=== PATIENT | female | born 1955 | race Caucasian/White ===

== ENCOUNTER 2018-07-08 06:48 | Day surgery (SDC) | payer BC ==
[2018-07-04 13:24] VITALS: BMI 56.7
[~2018-07-08 06:48] MED LIST: LACTATED RINGERS 1,000 ML IV SCH; LIDOCAINE 1% 20 ML VIAL (10MG/ML) FOR IV START INTRADERMA PRN
[2018-07-08] MEDS ORDERED: LACTATED RINGERS 1,000 ML IV ONE (06:59)
[2018-07-08 07:15] VITALS: RESP 16; TEMP 98.5
[2018-07-08] MEDS ORDERED: PROPOFOL 10 MG/ML 20 ML VIAL IV ONE (07:45)
--- NOTE | 2018-07-08 07:46 | P.GSHP ---
History of Present Illness H&P Date: 07/08/18 Chief Complaint: Screening colonoscopy 's is a 62 female who presents today for screening colonoscopy. Her last colonoscopy was over 10 years ago. She's had no GI complaints. Past Medical History Past Medical History: Cancer, GERD/Reflux, Hyperlipidemia, Hypertension, Osteoarthritis (OA), Pneumonia Additional Past Medical History / Comment(s): anemia, lymphedema gin legs, melanoma, "pre uterine cancer" History of Any Multi-Drug Resistant Organisms: None Reported Past Surgical History: Bariatric Surgery, Cholecystectomy, Hysterectomy, Tonsillectomy Additional Past Surgical History / Comment(s): melanoma removed from back, gastric bypass, Past Anesthesia/Blood Transfusion Reactions: Motion Sickness Additional Past Anesthesia/Blood Transfusion Reaction / Comment(s): past hx car sickness-not current, Smoking Status: Never smoker - Past Family History Mother Family Medical History: No Reported History Medications and Allergies Home Medications Medication Instructions Recorded Confirmed Type Aspirin [Adult Low Dose Aspirin EC] 81 mg PO DAILY 07/04/18 07/04/18 History Cyanocobalamin (Vitamin B-12) 1,000 mcg PO QAM 07/04/18 07/08/18 History [Vitamin B-12] Losartan Potassium [Cozaar] 50 mg PO HS 07/04/18 07/08/18 History Metoprolol Succinate [Toprol XL] 50 mg PO HS 07/04/18 07/08/18 History Multivitamins, Thera [Multivitamin 1 tab PO DAILY 07/04/18 07/04/18 History (formulary)] Simvastatin [Zocor] 40 mg PO HS 07/04/18 07/08/18 History Allergies Allergy/AdvReac Type Severity Reaction Status Date / Time No Known Allergies Allergy Verified 07/08/18 07:15 Surgical - Exam Vital Signs Temp Pulse Resp BP Pulse Ox 98.5 F 67 16 130/79 97 07/08/18 07:13 07/08/18 07:13 07/08/18 07:13 07/08/18 07:13 07/08/18 07:13 - General well developed, no distress - Eyes PERRL - ENT normal pinna - Neck no masses - Respiratory normal expansion - Cardiovascular Rhythm: regular - Abdomen Abdomen: soft, non tender Assessment and Plan Assessment: We will perform screening colonoscopy.
--- NOTE | 2018-07-08 08:02 | P.OP ---
Date of Procedure: 07/08/18 Preoperative Diagnosis: Screening colonoscopy Postoperative Diagnosis: Normal colon Procedure(s) Performed: Colonoscopy Anesthesia: MAC Surgeon: Crow Palomino Pathology: none sent Condition: stable Disposition: PACU Description of Procedure: PROCEDURE: The patient was placed on the endoscopy table in the lateral position. Digital rectal examination was performed which revealed no abnormalities. . Flexible colonoscope was then placed in the patient's anus and passed throughout the entire colon. The ileocecal valve was visualized. The cecum, ascending, transverse, descending and sigmoid colon were normal. The rectum was normal as well. There were no masses, polyps or diverticula noted in the entire colon. SUMMARY OF FINDINGS: Normal colonoscopy.
[2018-07-08 08:27] VITALS: BP 122/77; PULSE 50
== END 2018-07-08 08:43 | disposition home or self-care (01) ==
LOC: ORWHC2ENDO 06:48
PROVIDERS: ATTEND Surgery
DX: Z12.11 Encounter for screening for malignant neoplasm of colon (principal); E78.5 Hyperlipidemia, unspecified; I10 Essential (primary) hypertension; I89.0 Lymphedema, not elsewhere classified; K21.9 Gastro-esophageal reflux disease without esophagitis; M19.90 Unspecified osteoarthritis, unspecified site; Z79.82 Long term (current) use of aspirin; Z85.820 Personal history of malignant melanoma of skin; Z98.84 Bariatric surgery status; Z90.49 Acquired absence of other specified parts of digestive tract
CPT/HCPCS: J2704; G0121; 45378

== ENCOUNTER → 2019-11-17 | Outpatient (CLI) | payer OTHER ==
--- NOTE | 2019-11-18 09:02 | MM ---
Reason for exam: screening (asymptomatic). Last mammogram was performed 4 years and 1 month ago. History: Patient has history of other cancer at age 39 and is nulliparous. Physical Findings: A clinical breast exam by your physician is recommended on an annual basis and results should be correlated with mammographic findings. MG 3D Screening Mammo W/Cad Bilateral CC and MLO view(s) were taken. Prior study comparison: October 19, 2015, bilateral MG screening mammo w CAD. The breast tissue is heterogeneously dense. This may lower the sensitivity of mammography. There are benign appearing round vascular dystrophic calcifications bilaterally. There is no discrete abnormality. ASSESSMENT: Benign, BI-RAD 2 RECOMMENDATION: Routine screening mammogram of both breasts in 1 year.
== END | disposition home or self-care (01) ==
LOC: RADMAMWWP 09:12
PROVIDERS: ATTEND Family Medicine
DX: Z12.31 Encounter for screening mammogram for malignant neoplasm of breast (principal)
CPT/HCPCS: 77063; 77067

== ENCOUNTER → 2021-04-19 | Outpatient (CLI) | payer MEDICARE, OTHER ==
--- NOTE | 2021-04-19 13:51 | MM ---
Reason for exam: screening (asymptomatic). Last mammogram was performed 1 year and 5 months ago. History: Patient has history of other cancer at age 39 and is nulliparous. Physical Findings: A clinical breast exam by your physician is recommended on an annual basis and results should be correlated with mammographic findings. MG Screening Mammo w CAD Bilateral CC and MLO view(s) were taken. Prior study comparison: November 17, 2019, bilateral MG 3d screening mammo w/cad. October 19, 2015, bilateral MG screening mammo w CAD. There are scattered fibroglandular densities. ASSESSMENT: Negative, BI-RAD 1 RECOMMENDATION: Routine screening mammogram of both breasts in 1 year.
== END | disposition home or self-care (01) ==
LOC: RADMAMWWP 09:15
PROVIDERS: ATTEND Family Medicine
DX: Z12.31 Encounter for screening mammogram for malignant neoplasm of breast (principal)
CPT/HCPCS: 77067

== ENCOUNTER → 2022-10-11 | Outpatient (CLI) | payer MEDICARE ==
--- NOTE | 2022-10-11 19:23 | US ---
EXAMINATION TYPE: US kidneys/renal and bladder DATE OF EXAM: 10/11/2022 COMPARISON: NONE CLINICAL HISTORY: N18.30 CKD STAGE 3 UNSP. CKD. EXAM MEASUREMENTS: Right Kidney: 9.1 x 4.8 x 4.7 cm Left Kidney: 9.5 x 4.6 x 5.1 cm Exam is limited due to gas. Right Kidney: Hyperechoic focus seen at mid: 0.4 x 0.5 x 0.3 cm. Left Kidney: No hydronephrosis or masses seen Bladder: Appears anechoic. Bilateral Jets seen: Yes IMPRESSION: 1. No evidence of obstructive uropathy. 2. Right renal cortical probable calcification could be from prior injury.
== END | disposition home or self-care (01) ==
LOC: RADUSWWP 16:15
PROVIDERS: ATTEND Family Medicine
DX: N18.30 Chronic kidney disease, stage 3 unspecified (principal)
CPT/HCPCS: 76770

== ENCOUNTER → 2022-11-24 | Outpatient (CLI) | payer MEDICARE ==
[2022-11-24 18:47] LABS: HCT 43.1 % (37.2-46.3); HGB 13.6 g/dL (12.0-15.0); MCH 29.8 pg (27.0-32.0); MCHC 31.6 g/dL (32.0-37.0); MCV 94.5 fL (80.0-97.0); NRBC Per 100 WBC 0 /100 WBCS (0.0-0.0); Platelet Count 237 X 10*3/uL (140-440); RBC 4.56 X 10*6/uL (4.10-5.20); RDW 12.9 % (11.5-14.5); WBC 6.36 X 10*3/uL (4.50-10.00)
[2022-11-24 18:58] LABS: African American GFR (CKD) 48.5 (60.0-200.0); Albumin 4.2 g/dL (3.8-4.9); Anion Gap 10.9 mmol/L (10.00-18.00); BUN/Creat Ratio 12.31 Ratio (12.00-20.00); Calcium 9.8 mg/dL (8.7-10.3); Carbon Dioxide 26.1 mmol/L (20.0-27.5); Globulin 2.1 g/dL (1.6-3.3); Non-African American GFR(CKD) 41.8 (60.0-200.0); Phosphorus 4.4 mg/dL (2.4-5.1); Potassium 5.1 mmol/L (3.5-5.5); Total Bilirubin 0.8 mg/dL (0.30-1.20); Total Protein 6.3 g/dL (6.2-8.2)
[2022-11-24 19:58] LABS: Appearance,Urine Clear (Clear); Bilirubin,Urine Negative (Negative); Blood,Urine Negative (Negative); Color,Urine Yellow (Yellow); Ketones,Urine Negative (Negative); Nitrite,Urine Negative (Negative); PH, Urine 5.5 (5.0-8.0); Specific Gravity,Urine 1.013 (1.001-1.030)
[2022-11-24 20:07] LABS: Bacteria,Urine None Seen /HPF (None Seen)
== END | disposition home or self-care (01) ==
LOC: LABWHC1 10:04
PROVIDERS: ATTEND Family Medicine
DX: N18.30 Chronic kidney disease, stage 3 unspecified (principal)
CPT/HCPCS: 36415; 80053; 81001; 84100; 85027

== ENCOUNTER → 2023-03-23 | Outpatient (CLI) | payer MEDICARE ==
[2023-03-23 15:26] LABS: Basophils # (A) 0.04 X 10*3/uL (0.00-0.10); Basophils % (A) 0.7 %; Eosinophils # (A) 0.24 X 10*3/uL (0.04-0.35); Eosinophils % (A) 4.2 %; HCT 41.6 % (37.2-46.3); HGB 13.4 g/dL (12.0-15.0); Immature Grans, Automated 0.3 %; Lymphocytes # (A) 1.41 X 10*3/uL (0.90-5.00); Lymphocytes % (A) 24.4 %; MCH 29.8 pg (27.0-32.0); MCHC 32.2 g/dL (32.0-37.0); MCV 92.7 fL (80.0-97.0); Mean Platelet Volume 10.1 fL (9.5-12.2); Monocytes # (A) 0.47 X 10*3/uL (0.20-1.00); Monocytes % (A) 8.1 %; NRBC Per 100 WBC 0 /100 WBCS (0.0-0.0); Neutrophils # (A) 3.59 X 10*3/uL (1.80-7.70); Neutrophils % (A) 62.3 %; Platelet Count 261 X 10*3/uL (140-440); RBC 4.49 X 10*6/uL (4.10-5.20); RDW 12.6 % (11.5-14.5); WBC 5.77 X 10*3/uL (4.50-10.00)
[2023-03-23 16:15] LABS: ALT 10 U/L (8-44); AST 17 U/L (13-35); African American GFR (CKD) 40.8 (60.0-200.0); Alkaline Phosphatase 42 U/L (41-126); BUN/Creat Ratio 10.33 Ratio (12.00-20.00); Blood Urea Nitrogen 15.5 mg/dL (9.0-27.0); Calcium 9.6 mg/dL (8.7-10.3); Carbon Dioxide 21.9 mmol/L (20.0-27.5); Chloride 106 mmol/L (96-109); Chol/HDL Ratio 2.24 Ratio; Globulin 2.1 g/dL (1.6-3.3); Glucose 115 mg/dL (70-110); Iron 97 ug/dL (50-170); LDL Cholesterol,Calculated 52.8 mg/dL (0.0-131.0); Magnesium 2.1 mg/dL (1.5-2.4); Non-African American GFR(CKD) 35.2 (60.0-200.0); Phosphorus 4.5 mg/dL (2.4-5.1); Potassium 4.7 mmol/L (3.5-5.5); Sodium 142 mmol/L (135-145); Total Iron Binding Capacity 284 ug/dL (228-460); Total Protein 6.1 g/dL (6.2-8.2); Uric Acid 4.4 mg/dL (2.9-7.7)
[2023-03-24 02:45] LABS: Microalbumin Creatinine Ratio <30 mg/g Creat (0-30); Urine Creatinine 81.6 mg/dL (28.0-217.0)
[2023-03-24 03:37] LABS: Appearance,Urine Clear (Clear); Bilirubin,Urine Negative (Negative); Blood,Urine Negative (Negative); Color,Urine Yellow (Yellow); Ketones,Urine Negative (Negative); Nitrite,Urine Negative (Negative); PH, Urine 5.5 (5.0-8.0); Urobilinogen,Urine 0.2 (0.2,1.0)
[2023-03-24 03:44] LABS: Bacteria,Urine None Seen /HPF (None Seen)
--- NOTE | 2023-03-27 07:28 | MM ---
Reason for Exam: Screening (asymptomatic). Last mammogram was performed 1 year(s) and 11 month(s) ago. Patient History: Menarche at age 12. Patient has no children. Hysterectomy at age 27. Other cancer, age 39. Risk Values: Erinn 5 year model risk: 1.7%. NCI Lifetime model risk: 5.4%. Prior Study Comparison: 10/19/2015 Bilateral Screening Mammogram, [facility]. 11/17/2019 Bilateral Screening Mammogram, [facility]. 04/19/2021 Bilateral Screening Mammogram, [facility]. Tissue Density: The breast tissue is heterogeneously dense. This may lower the sensitivity of mammography. Findings: Analyzed By CAD. There is no suspicious group of microcalcifications or new suspicious mass in either breast. Overall Assessment: Negative, BI-RAD 1 Management: Screening Mammogram of both breasts in [address] [facility] will attempt to contact patient to return for supplemental views and ultrasound if indicated. Patient should continue monthly self-breast exams. A clinical breast exam by your physician is recommended on an annual basis. This exam should not preclude additional follow-up of suspicious palpable abnormalities. Note on Erinn scores and lifetime risk: 1. A Erinn score greater than 3% is considered moderate risk. If this is the case, consider specialist referral to assess eligibility for a risk reducing agent. 2. If overall lifetime risk for the development of breast cancer is 20% or higher, the patient may qualify for future screening with alternating mammogram and breast MRI. Electronically signed and approved by: Sai Yañez DO
== END | disposition home or self-care (01) ==
LOC: RADMAMWWP 07:55
PROVIDERS: ATTEND Family Medicine
DX: Z12.31 Encounter for screening mammogram for malignant neoplasm of breast (principal); I10 Essential (primary) hypertension; D64.9 Anemia, unspecified; N39.0 Urinary tract infection, site not specified; R80.9 Proteinuria, unspecified; E55.9 Vitamin D deficiency, unspecified; M10.9 Gout, unspecified
CPT/HCPCS: 77063; 77067; 80053; 80061; 81001; 82043; 82306; 82570; 83540; 83550; 83735; 83970; 84100; 84550; 85025

== ENCOUNTER → 2024-02-21 | Outpatient (CLI) | payer MEDICARE ==
--- NOTE | 2024-02-22 07:10 | US ---
EXAMINATION TYPE: US kidneys/renal and bladder DATE OF EXAM: 02/21/2024 COMPARISON: 10/11/2022 CLINICAL INDICATION: Female, 68 years old with history of N18.32 CHRONIC KIDNEY DISEASE, STAGE 3B; Alonzo powell denies any signs, symptoms, or relevant history EXAM MEASUREMENTS: Right Kidney: 9.1 x 4.9 x 5.0 cm Left Kidney: 8.9 x 5.0 x 5.4 cm Post Void Residual Volume: NA mL Right Kidney: Echogenic area redemonstrated Left Kidney: Multiple echogenic areas Bladder: WNL Bilateral Jets seen: Yes Normal Post Void Residual: NA There is no evidence for hydronephrosis at this point in time. No masses are identified. The urinar y bladder is anechoic. Bilateral ureteral jets are seen. IMPRESSION: 1. Small nonshadowing echogenic foci in the renal cortices most likely indicating small angiomyolipom as. 2. No renal calcification, hydronephrosis or perinephric fluid collection.
== END | disposition home or self-care (01) ==
LOC: RADUSWWP 14:10
PROVIDERS: ATTEND Internal Medicine
DX: N18.32 Chronic kidney disease, stage 3b (principal)
CPT/HCPCS: 76770

== ENCOUNTER → 2024-03-27 | Outpatient (CLI) | payer MEDICARE ==
--- NOTE | 2024-03-31 09:11 | MM ---
Reason for Exam: Screening (asymptomatic). Last screening mammogram was performed 12 month(s) ago. Patient History: Menarche at age 12. Patient has no children. Hysterectomy at age 27. Other cancer, age 39. Risk Values: Erinn 5 year model risk: 1.7%. NCI Lifetime model risk: 5.1%. Prior Study Comparison: 11/17/2019 Bilateral Screening Mammogram, [facility]. 04/19/2021 Bilateral Screening Mammogram, [facility]. 03/23/2023 Bilateral MG 3D screening mammo w/cad, [facility]. Tissue Density: There are scattered areas of fibroglandular density. Findings: Analyzed By CAD. Asymmetric densities on the right are unchanged. Benign scattered oil cyst and Vascular calcifications. No significant change from prior exams. Overall Assessment: Benign, BI-RAD 2 Management: Screening Mammogram of both breasts in 1 year. . Patient should continue monthly self-breast exams. A clinical breast exam by your physician is recommended on an annual basis. This exam should not preclude additional follow-up of suspicious palpable abnormalities. Note on Erinn scores and lifetime risk: 1. A Erinn score greater than 3% is considered moderate risk. If this is the case, consider specialist referral to assess eligibility for a risk reducing agent. 2. If overall lifetime risk for the development of breast cancer is 20% or higher, the patient may qualify for future screening with alternating mammogram and breast MRI. Electronically signed and approved by: Sandra Barnes M.D. Radiologist
== END | disposition home or self-care (01) ==
LOC: RADMAMWWP 15:56
PROVIDERS: ATTEND Family Medicine
DX: Z12.31 Encounter for screening mammogram for malignant neoplasm of breast (principal)
CPT/HCPCS: 77063; 77067

== ENCOUNTER → 2025-03-12 | Outpatient (CLI) | payer MEDICARE ==
--- NOTE | 2025-03-12 11:04 | US ---
EXAMINATION TYPE: US kidneys/renal and bladder DATE OF EXAM: 03/12/2025 COMPARISON: 02/21/2024 CLINICAL INDICATION: Female, 69 years old with history of N18.32 CHRONIC KIDNEY DISEASE, STAGE 3B; Alonzo powell denies any signs, symptoms, or changes from prior TECHNIQUE: Grayscale imaging of the bilateral kidneys and urinary bladder: FINDINGS: EXAM MEASUREMENTS: Right Kidney: 9.4 x 4.3 x 5.1 cm Left Kidney: 8.5 x 5.2 x 3.7 cm Post Void Residual Volume: mL Right Kidney: Echogenic area redemonstrated, otherwise WNL Left Kidney: wnl, no evidence for hydronephrosis, mass or renal calculus. Bladder: wnl Bilateral Jets seen: Yes Normal Post Void Residual: Not performed There is no evidence for hydronephrosis at this point in time. No nephrolithiasis is seen. No mary s are identified. The urinary bladder is anechoic. IMPRESSION: 1. No evidence for acute process. 2. Right renal nonobstructing calculus is a small angiomyolipoma. [facility], , 03/12/2025 11:01 AM
== END | disposition home or self-care (01) ==
LOC: RADUSWWP 10:27
PROVIDERS: ATTEND Internal Medicine
DX: N18.32 Chronic kidney disease, stage 3b (principal); N20.0 Calculus of kidney; D17.71 Benign lipomatous neoplasm of kidney
CPT/HCPCS: 76770